=== PATIENT | female | born 1950 | race Caucasian/White ===

== ENCOUNTER 2023-08-23 20:34 | Emergency (ER) | payer MEDICARE, OTHER, SELFPAY ==
[2023-08-23] VITALS (7 sets, daily range): BP systolic 141–204; BP diastolic 61–108; BMI 23.8
[2023-08-23 21:02] LABS: % Basophils 0.3 % (0-2); % Eosinophils 0.5 % (0-6); % Immature Granulocytes 0.3 % (0-0.5); % Lymphocytes 8.5 % (20.5-51.1); % Monocytes 6.9 % (1.7-9.3); % Neutrophils 83.5 % (42.2-75.2); Absolute Eosinophils 0.1 10^3/uL (0-0.7); Absolute Monocytes 0.8 10^3/uL (0.1-0.6); Absolute Neutrophils 9.9 10^3/uL (1.4-6.5); Hematocrit 40.3 % (37.0-47.0); Hemoglobin 14.7 g/dL (12.0-16.0); Mean Corp Hgb Conc. 36.5 g/dL (33.0-37.0); Mean Corpuscular Hgb 30.6 pg (27.0-31.0); Mean Platelet Volume 9.6 fL (7.4-10.4); Nucleated Red Blood Cells % 0 %; Platelet Count 326 10^3/uL (130-400); Red Cell Dist. Width 12.5 % (11.5-14.5); White Blood Cell Count 11.8 10^3/uL (4.8-10.8)
[2023-08-23 21:20] LABS: ALT (SGPT) 38 U/L (0-35); AST (SGOT) 35 U/L (14-36); Alkaline Phosphatase 74 U/L (38-126); Blood Urea Nitrogen 18 mg/dl (7-17); Calcium 9.6 mg/dl (8.4-10.2); Carbon Dioxide 29 mmol/L (22-30); Chloride 91 mmol/L (98-107); Glucose 131 mg/dl (70-99); Potassium 4.9 mmol/L (3.5-5.1); Sodium 126 mmol/L (135-145); Total Protein 7.6 g/dl (6.3-8.2); eGFR > 60.00
[2023-08-23] MEDS: NSS 1000 IV (22:17)
--- NOTE | 2023-08-23 23:25 | ED.GENMED ---
History of Present Illness
General
Chief Complaint: Blood Pressure Problem
Source: patient
Exam Limitations: none
Time Seen by Provider: 08/23/23 21:53
Nursing documentation reviewed up to this point in time: agreed with
Travel History
Have you had any contact with someone who has COVID-19?: No
Do you have any symptoms of coronavirus? Fever > 100 degrees, chills, cough, shortness of breath, sore throat, loss of taste or smell, muscle aches, or headache?: No
History of Present Illness
History of Present Illness:
Patient to ED with complaint of elevated BP. States she checks BP frequently at home. Today she go a reading of 217/125. Admits to increased stress recently with work. Brought to ED by spouse for eval. Denies headache, dizziness, blurred
vision. Denies any cp/pressure, SOB. No fver/chills, recent illness.
Past History
Past History
ED Past Medical History: HTN
ED Past Surgical History: Cardiac
Social History
Tobacco: Non-smoker
Alcohol: None
Drug: None
Personal:
Living: with family
Review of Systems
Review of Systems
Allergies reviewed?: Yes
All Other Systems: ROS reviewed and negative except as documented in HPI and ROS
Constitutional: Reports no symptoms
EENT: Reports no symptoms
Respiratory: Reports no symptoms
Cardiac: Reports no symptoms
ABD/GI: Reports no symptoms
: Reports no symptoms
Musculoskeletal: Reports no symptoms
Skin: Reports no symptoms
Neurological: Reports no symptoms
Psychiatric: Reports no symptoms
Phy Exam
General Physical Exam
General Presentation: well appearing and no apparent distress
General age: appears stated age
General Skin: warm and dry
General Habitus: normal
General Mental: alert
Cardiovascular Exam
Cardiovascular Exam: regular rate/rhythm and no edema
Pulmonary Exam
Pulmonary Exam: lungs clear and no respiratory distress
Neurological Exam
Neurological Exam: alert, oriented x3, no motor deficits, no sensory deficits and normal gait
Musculoskeletal Exam
Musculoskeletal Exam: full ROM and neuro vasc intact
Skin Exam
Skin Exam: normal color, warm/dry and no rash
Psychiatric Exam
Psychiatric Exam: normal mood/affect
Course
Orders/Labs/Results
Orders:
Orders
08/23/23 20:41
Electrocardiogram (*1) Urgent
Reason for Study: Hypertension, Benign
EKG- Treatment ONCE
08/23/23 20:56
CMP [Comprehensive Metabolic Panel] Urgent
Complete Blood Count/With Diff Urgent
08/23/23 22:03
0.9% Sodium Chloride 1000 ml [Nss] 1,000 ml IV BOLUS
Abnormal Lab Results
08/23/23
20:56
WBC 11.8 H 10^3/uL
(4.8-10.8)
Absolute Neuts (auto) 9.9 H 10^3/uL
(1.4-6.5)
Absolute Lymphs (auto) 1.0 L 10^3/uL
(1.2-3.4)
Absolute Monos (auto) 0.8 H 10^3/uL
(0.1-0.6)
Neutrophils % 83.5 H %
(42.2-75.2)
Lymphocytes % 8.5 L %
(20.5-51.1)
Sodium 126 L mmol/L
(135-145)
Chloride 91 L mmol/L
(98-107)
BUN 18 H mg/dl
(7-17)
Glucose 131 H mg/dl
(70-99)
ALT 38 H U/L
(0-35)
08/23/23 20:56
08/23/23 20:56
Vital Signs
Initial and Last Documented VS:
Initial Vital Signs
Temp Pulse Resp BP Pulse Ox
97.7 F 124 18 204/108 97
08/23/23 20:36 08/23/23 20:36 08/23/23 20:36 08/23/23 20:36 08/23/23 20:36
Last Documented Vital Signs
Temp Pulse Resp BP Pulse Ox
97.7 F 68 12 143/66 97
08/23/23 20:36 08/23/23 23:15 08/23/23 23:15 08/23/23 23:15 08/23/23 23:15
*Critical Care Note
Total Time (30-74mins, 75-104mins- exclusive of procedures): Not Applicable
Update Note
Update Note:
BP in ED mildly elevated. Last reading of 159/88. Labs reviewed. Na 126. Has had prior episodes of hyponatremia. She remains asymptomatic of BP and NA. Given 1L NSS in dept. Will have level rechecked this week. Will discharge home. She
willl continue to check BP and log results. WIll follow up with PCP on Saturday. Given instrutions on s/s to return to ED and she is agreeable to plan
ED Attending Note
-
Portions of this chart may have been created with voice recognition software.� Occasional wrong word or��sound alike� substitutions may have occurred due to the inherent limitations of voice recognition software.
Discharge Plan
Departure
Patient Disposition: Home (Routine Discharge)
Date of Disposition: 08/23/23
Time of Disposition: 23:15
Patient with high blood pressure during this ER visit?: Yes
Condition: Good
Covid-19: Not Applicable
Discharge Problem:
Hypertension
Instructions: High Blood Pressure (DC), Hyponatremia (DC)
Referrals:
Carl Ramsay MD [Family Provider] - Follow up in 2-3 days
Activity Restrictions/Additional Instructions:
Please have your sodium level rechecked within the week.
Interventions
Interventions:
*Risk Screen - Suicide Last Done: 08/23/23 22:19
*General Assessment Last Done: 08/23/23 20:36
*Neglect/Abuse Screening Last Done: 08/23/23 22:19
ED- Fall Risk Assessment Last Done: 08/23/23 22:20
*ED COVID-19 Vaccine History Last Done: 08/23/23 20:36
ED- Cardiac Assessment Last Done: 08/23/23 22:19
ED- Neurological Assessment Last Done: 08/23/23 22:19
ED- Pulmonary Assessment Last Done: 08/23/23 22:19
== END 2023-08-23 23:47 | disposition home or self-care (01) ==
LOC: EMR 20:34
PROVIDERS: Student in an Organized Health Care Education/Training Program; EMERGENCY PHYSICIAN Emergency Medicine; FAMILY PHYSICIAN Family Medicine
DX: I10 Essential (primary) hypertension (principal); Z73.3 Stress, not elsewhere classified; F41.9 Anxiety disorder, unspecified; I25.10 Atherosclerotic heart disease of native coronary artery without angina pectoris; Z95.1 Presence of aortocoronary bypass graft; Z88.2 Allergy status to sulfonamides; Z88.1 Allergy status to other antibiotic agents; Z91.013 Allergy to seafood
CPT/HCPCS: 99284; 96360; 80053; 85025; 93005

== ENCOUNTER 2023-12-07 12:55 | Emergency (ER) | payer MEDICARE, OTHER, SELFPAY ==
[2023-12-07 13:09] VITALS: BP 198/113
[2023-12-07 13:48] VITALS: BP 184/110
[2023-12-07 14:00] VITALS: BP 184/105
--- NOTE | 2023-12-07 14:09 | ED.GENMED ---
History of Present Illness
General
Chief Complaint: Allergic Reaction
Source: patient and spouse
Exam Limitations: none
Time Seen by Provider: 12/07/23 13:53
Travel History
Have you had any contact with someone who has COVID-19?: No
Do you have any symptoms of coronavirus? Fever > 100 degrees, chills, cough, shortness of breath, sore throat, loss of taste or smell, muscle aches, or headache?: No
History of Present Illness
History of Present Illness:
Patient started citalopram about a week ago for her blood pressure via her marble supervisor. Blood pressures have been running in the 130s over 80s range. She is on amlodipine 5 mg/day. No chest pain. Days after she started the citalopram she
developed dry mouth tachycardia some episodes of heart racing and facial flushing. She called her cardiology office yesterday and they stopped the medication however she still feels this way today. No chest pain. Some mild shortness of breath
earlier today but she states that may have been her just getting anxious
Past History
Past History
ED Past Medical History: CAD and HTN
ED Past Surgical History: Cardiac
Social History
Tobacco: Non-smoker
Alcohol: None
Drug: None
Personal:
Living: with family
Review of Systems
Review of Systems
All Other Systems: Not applicable
Constitutional: Denies fever
Cardiac: Denies chest pain or syncope
ABD/GI: Reports no symptoms
Phy Exam
Physical Exam
Physical Exam:
GENERAL: Alert and oriented in no apparent distress
EYE: Orbits normal.
NECK: Supple, no thyroid
ENT: Pharynx without erythema
CARDIAC: Mildly tachycardic and regular no murmur
LUNGS: Clear breath sounds,normal
ABDOMEN: Soft, without focal tenderness or distention
NEUROLOGICAL: Alert and oriented , grossly non-focal
SKIN: Warm and dry, mild flushing of the cheeks. No hives or urticaria
MUSCULOSKELETAL: No edema,no deformity.Good color
PSYCH: Normal and appropriate interaction.
Course
Orders/Labs/Results
Orders:
Orders
12/07/23 13:12
Electrocardiogram (*1) Urgent
Reason for Study: Tachycardia
12/07/23 13:13
EKG- Treatment ONCE
12/07/23 14:07
Cardiac Monitoring- Treatment ONCE
IV Insert/Care/Rem.- Treatment PRN
Pulse Ox/cont/shift [RESP] Stat
Quantity: 1
12/07/23 14:18
Basic Metabolic Panel Urgent
Complete Blood Count/With Diff Urgent
D-Dimer Urgent
TSH Reflex To Free T4 Urgent
Troponin I Urgent
Abnormal Lab Results
12/07/23
14:18
Absolute Neuts (auto) 7.3 H 10^3/uL
(1.4-6.5)
Absolute Monos (auto) 0.9 H 10^3/uL
(0.1-0.6)
Lymphocytes % 15.5 L %
(20.5-51.1)
Sodium 129 L mmol/L
(135-145)
Potassium 5.4 H mmol/L
(3.5-5.1)
Chloride 94 L mmol/L
(98-107)
Glucose 132 H mg/dl
(70-99)
Calcium 10.3 H mg/dl
(8.4-10.2)
12/07/23 14:18
12/07/23 14:18
Vital Signs
Initial and Last Documented VS:
Initial Vital Signs
Temp Pulse Resp BP Pulse Ox
97.7 F 102 20 198/113 100
12/07/23 13:09 12/07/23 13:09 12/07/23 13:09 12/07/23 13:09 12/07/23 13:09
Last Documented Vital Signs
Temp Pulse Resp BP Pulse Ox
97.7 F 100 15 145/76 100
12/07/23 13:09 12/07/23 16:15 12/07/23 16:15 12/07/23 16:00 12/07/23 13:09
MDM/Problems Addressed
Differential Diagnosis Includes:
Very likely anticholinergic side effects from her medication. However with tachycardia and shortness of breath pulmonary emboli has to be considered. Cardiac testing will also be done. Medically stable.
*Pulse Oximetry
Patient hypoxic: no
*EKG
Interpreted by ED Provider?: Yes
Interpretation: abnormal
Comparison EKG: changes noted
Heart Rate: 97
Rate: normal
Rhythm: sinus
[place]: normal axis
Interval: normal interval
QRS Pattern: left vent hypertrophy
Ischemia: non-specific ST changes
*Critical Care Note
Total Time (30-74mins, 75-104mins- exclusive of procedures): Not Applicable
Update Note
Update Note:
Patient heart rate below 100. Blood pressure 145/76. Medically stable. No other serious explanation for patient's symptoms. Very likely anticholinergic effects from her citalopram.
ED Attending Note
-
Portions of this chart may have been created with voice recognition software.� Occasional wrong word or��sound alike� substitutions may have occurred due to the inherent limitations of voice recognition software.
Discharge Plan
Departure
Patient Disposition: Home (Routine Discharge)
Date of Disposition: 12/07/23
Time of Disposition: 16:28
Patient with high blood pressure during this ER visit?: Yes
Discharge Problem:
Adverse reaction to citalopram, Elevated blood pressure reading, Mild hyponatremia, Mild hyperkalemia
Instructions: Adverse Drug Reactions, Adult (DC), Hyponatremia, Hyperkalemia, BLOOD PRESSURE
Referrals:
Fletcher Burr MD [Active] - Next open appointment
Carl Ramsay MD [Family Provider] - Follow up in 2-3 days
Activity Restrictions/Additional Instructions:
Follow-up closely with your primary physician and marble supervisor concerning your blood pressure
I would expect the symptoms to slowly improve over the next 3 to 5 days. If they do not or they progress please return immediately for reevaluation
Also return with any other unusual symptoms including chest pain shortness of breath progressive rash etc.
Get repeat labs of your sodium and potassium within the next week
Interventions
Interventions:
*Risk Screen - Suicide Last Done: 12/07/23 13:52
*General Assessment Last Done: 12/07/23 13:52
*Neglect/Abuse Screening Last Done: 12/07/23 13:52
ED- Fall Risk Assessment Last Done: 12/07/23 13:52
*ED COVID-19 Vaccine History Last Done: 12/07/23 13:52
ED- Cardiac Assessment Last Done: 12/07/23 13:52
ED- Pulmonary Assessment Last Done: 12/07/23 13:52
ED-Skin Assessment Last Done: 12/07/23 13:52
Discharge Date and Time
Print Language: UKRAINIAN
[2023-12-07 14:31] LABS: % Basophils 0.6 % (0-2); % Eosinophils 0.5 % (0-6); % Immature Granulocytes 0.1 % (0-0.5); % Lymphocytes 15.5 % (20.5-51.1); % Monocytes 9.2 % (1.7-9.3); % Neutrophils 74.1 % (42.2-75.2); Absolute Basophils 0.1 10^3/uL (0-0.2); Absolute Eosinophils 0.1 10^3/uL (0-0.7); Absolute Lymphocytes 1.5 10^3/uL (1.2-3.4); Absolute Monocytes 0.9 10^3/uL (0.1-0.6); Absolute Neutrophils 7.3 10^3/uL (1.4-6.5); Hematocrit 41.9 % (37.0-47.0); Hemoglobin 14.7 g/dL (12.0-16.0); Mean Corp Hgb Conc. 35.1 g/dL (33.0-37.0); Mean Corpuscular Volume 85.5 fL (81.0-99.0); Mean Platelet Volume 9.8 fL (7.4-10.4); Nucleated Red Blood Cells % 0 %; Platelet Count 384 10^3/uL (130-400); Red Cell Dist. Width 12.1 % (11.5-14.5); White Blood Cell Count 9.8 10^3/uL (4.8-10.8)
[2023-12-07 14:39] LABS: D-Dimer 0.31 ug/mlFEU (0.00-0.50)
[2023-12-07 14:46] LABS: Blood Urea Nitrogen 17 mg/dl (7-17); Calcium 10.3 mg/dl (8.4-10.2); Carbon Dioxide 29 mmol/L (22-30); Chloride 94 mmol/L (98-107); Glucose 132 mg/dl (70-99); Potassium 5.4 mmol/L (3.5-5.1); Sodium 129 mmol/L (135-145); eGFR > 60.00
[2023-12-07 14:56] LABS: Troponin I < 0.012 ng/ml
[2023-12-07 15:10] VITALS: BP 142/78
[2023-12-07 16:00] VITALS: BP 145/76
== END 2023-12-07 17:08 | disposition home or self-care (01) ==
LOC: EMR 12:55
PROVIDERS: EMERGENCY PHYSICIAN Emergency Medicine; FAMILY PHYSICIAN Family Medicine
DX: T78.40XA Allergy, unspecified, initial encounter (principal); E87.5 Hyperkalemia; E87.1 Hypo-osmolality and hyponatremia; I10 Essential (primary) hypertension
CPT/HCPCS: 99284; 80048; 84443; 84484; 85025; 85379; 93005

== ENCOUNTER → 2024-04-23 15:45 | Outpatient (REF) | payer MEDICARE, OTHER, SELFPAY | LOC: HWRCS 15:45 | PROVIDERS: ATTENDING PHYSICIAN Internal Medicine; FAMILY PHYSICIAN Family Medicine | DX: I25.10 Atherosclerotic heart disease of native coronary artery without angina pectoris (principal); I10 Essential (primary) hypertension; Z95.1 Presence of aortocoronary bypass graft | CPT/HCPCS: 93306 ==

== ENCOUNTER → 2024-07-13 14:51 | Outpatient (REF) | payer MEDICARE, OTHER, SELFPAY | LOC: HWRAD 14:51 | PROVIDERS: ATTENDING PHYSICIAN Internal Medicine Endocrinology, Diabetes & Metabolism; FAMILY PHYSICIAN Family Medicine | DX: E04.2 Nontoxic multinodular goiter (principal) | CPT/HCPCS: 76536 ==

== ENCOUNTER 2025-03-23 01:37 | Emergency (ER) | payer MEDICARE, OTHER, SELFPAY ==
[2025-03-23 01:41] VITALS: BP 183/93
[2025-03-23 02:08] VITALS: BP 177/74
[2025-03-23 03:00] VITALS: BP 142/62
[2025-03-23 03:31] LABS: Hematocrit 41.4 % (37.0-47.0); Hemoglobin 14.3 g/dL (12.0-16.0); Mean Corp Hgb Conc. 34.5 g/dL (33.0-37.0); Mean Corpuscular Volume 84.3 fL (81.0-99.0); Nucleated Red Blood Cells % 0 %; Platelet Count 350 10^3/uL (130-400); Red Cell Dist. Width 12.6 % (11.5-14.5)
[2025-03-23 03:50] LABS: ALT (SGPT) 32 U/L (0-35); AST (SGOT) 31 U/L (14-36); Albumin 5.2 g/dl (3.5-5.0); Alkaline Phosphatase 63 U/L (38-126); Blood Urea Nitrogen 23 mg/dl (7-17); Calcium 10.2 mg/dl (8.4-10.2); Carbon Dioxide 27 mmol/L (22-30); Chloride 102 mmol/L (98-107); Glucose 125 mg/dl (70-99); Potassium 4.5 mmol/L (3.5-5.1); Sodium 137 mmol/L (135-145); Total Protein 8.0 g/dl (6.3-8.2); eGFR > 60.00
[2025-03-23 04:00] VITALS: BP 135/67
[2025-03-23 04:07] LABS: Troponin I < 0.012 ng/ml
--- NOTE | 2025-03-23 04:39 | ED.GENMED ---
History of Present Illness
General
Chief Complaint: Heart Rate Problem
Source: patient and family (Daughter who is at bedside)
Exam Limitations: none
Time Seen by Provider: 03/23/25 03:09
Nursing documentation reviewed up to this point in time: agreed with
History of Present Illness
History of Present Illness:
The patient is a 74-year-old female presenting with palpitations. She reported waking up from sleep around midnight experiencing a sensation of her heart 'racing' and feeling flushed. The episode was characterized by a heart rate of approximately
124 beats per minute, which she described as 'pretty regular.' She also reported her blood pressure being elevated at 199/110 mmHg during the episode. She noted an absence of pain and shortness of breath, and prior to the event, she felt fine before
going to bed. The patient reported that this was the first occurrence of palpitations, causing concern due to her history of CABG 2018. She has a history of hyperthyroidism and is currently taking Methimazole. Her last thyroid function test was in
December, which did not require any change in her medication. She also has a history of hypertension with typical readings around 130/76 mmHg.
She follows regularly with supervisor slate splitting as well as spot washer, Dr. Banks.
She has known history of PACs but no prior history of arrhythmia, no history of A-fib.
She does admit to being under tremendous amount of stress, would like go from her prior employment after more than 20 years of service. She has had marked difficulty finding new employment.
She also notes significant anxiety when palpitations occurred and anxiety may have been exacerbated as she was home alone. Her is currently away on business. She called her daughter and upon daughter's arrival her heart rate and blood
pressure immediately improved.
Currently feeling markedly improved and continues to deny chest pain nor shortness of breath.
She admits to consuming 1 glass of wine tonight. Denies caffeine use, no decongestants nor antihistamines, denies drug use.
Past History
Past History
ED Past Medical History: CAD, HTN, Hypercholesterolemia, Hyperthyroidism and Psychiatric (Anxiety)
ED Past Surgical History: Cardiac (CABG times 10/2018)
Social History
Tobacco: Non-smoker
Alcohol: Occasional
Drug: None
Personal:
Living: with family
Employment: Not employed
Family History
Family History: Hypertension
Phy Exam
Physical Exam
Physical Exam:
GENERAL: 74-year-old woman appears her stated age, bright and alert, pleasant, appears in no acute distress. Daughter is accompanying.
EYE: anicteric
NECK: Supple, nontender, no meningismus, no significant adenopathy.
ENT: oral mucosa is moist. No rhinorrhea.
CARDIAC: Regular rate and rhythm. no murmur.
LUNGS: Clear breath sounds bilaterally, no acute respiratory distress, no wheezes/rales/rhonchi
ABDOMEN: Soft, nondistended, without focal tenderness
NEUROLOGICAL: Alert and oriented x3, no focal neuro deficits. Gait is steady.
SKIN: Warm and dry, normal color, skin intact. No rash.
MUSCULOSKELETAL: No C/C/E. peripheral pulses are full and equal b/l. No palpable tenderness.
PSYCH: Normal and appropriate interaction.
Course
Orders/Labs/Results
Orders:
Orders
03/23/25 01:38
ECG [Electrocardiogram (*1)] Urgent
Reason for Study: Tachycardia
03/23/25 01:39
EKG- Treatment ONCE
03/23/25 03:25
Comprehensive Metabolic Panel Urgent
03/23/25 03:26
Complete Blood Count/With Diff Urgent
TSH Reflex To Free T4 Urgent
Troponin I Urgent
Abnormal Lab Results
03/23/25 03/23/25
03:25 03:26
Absolute Neuts (auto) 7.9 H 10^3/uL
(1.4-6.5)
Absolute Monos (auto) 0.8 H 10^3/uL
(0.1-0.6)
Lymphocytes % 17.1 L %
(20.5-51.1)
BUN 23 H mg/dl
(7-17)
Glucose 125 H mg/dl
(70-99)
Albumin 5.2 H g/dl
(3.5-5.0)
03/23/25 03:26
03/23/25 03:25
Vital Signs
Initial and Last Documented VS:
Initial Vital Signs
Temp Pulse Resp BP Pulse Ox
97.6 F 95 16 183/93 99
03/23/25 01:41 03/23/25 01:41 03/23/25 01:41 03/23/25 01:41 03/23/25 01:41
Last Documented Vital Signs
Temp Pulse Resp BP Pulse Ox
97.6 F 74 19 135/67 94
03/23/25 01:41 03/23/25 04:30 03/23/25 03:15 03/23/25 04:00 03/23/25 04:48
MDM/Problems Addressed
Differential Diagnosis Includes:
The Differential Diagnosis includes, in no particular order and is not limited to:
1. Paroxysmal Supraventricular Tachycardia (PSVT)
2. Atrial Fibrillation
3. Anxiety Attack
4. Hyperthyroidism-related Cardiac Symptoms
5. Hypertensive Crisis
6. Premature Atrial Contractions (PACs)
7. Coronary Artery Disease
8. Heart Failure
9. Electrolyte Imbalance
10. Medication side effects or interactions.
MDM/Problems Addressed:
Palpitations, hypertension, hypothyroidism
Concern for tachyarrhythmia which has resolved since arrival to the ED.
EKG shows normal sinus rhythm with PACs, LVH. Overall similar and unchanged from previous EKG November 2023
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
Initial blood pressure elevated 183/93, has improved to 142/62.
Will continue patient monitor, will check labs including troponin, electrolytes, TSH�especially in light of history of hyperthyroidism.
Chronic conditions affecting care: HTN, CAD, Psychiatric illness and Other (Hypothyroidism)
*Pulse Oximetry
SaO2: 94
Oxygen Mode of Delivery: Room air
Patient hypoxic: no
*EKG
Interpreted by ED Provider?: Yes
Interpretation: normal
Comparison EKG: no changes (Unchanged from previous November 2023)
Rate: normal
Rhythm: sinus and PAC's
[place]: normal axis
Interval: normal interval
QRS Pattern: left vent hypertrophy
Ischemia: non-specific ST changes (LVH with mild strain pattern laterally, similar and unchanged from previous November 2023)
*Darklight Inspector Interpretation
Rate: normal
Interpretation: normal
Rhythm: sinus and PAC's
*Critical Care Note
Total Time (30-74mins, 75-104mins- exclusive of procedures): Not Applicable
Update Note
Update Note:
04:45
Patient remains comfortable, asymptomatic.
Monitor continues to show normal sinus rhythm.
Blood pressures improved 135/67. At her baseline.
Labs are unremarkable. Normal troponin, normal electrolytes. Normal TSH.
Will discharge to home with recommendation for prompt follow-up with her PCP as well as her spot washer.
Return precautions discussed.
ED Attending Note
-
Portions of this chart may have been created with voice recognition software.� Occasional wrong word or��sound alike� substitutions may have occurred due to the inherent limitations of voice recognition software.
Discharge Plan
Departure
Patient Disposition: Home (Routine Discharge)
Date of Disposition: 03/23/25
Time of Disposition: 04:51
Patient with high blood pressure during this ER visit?: No
Condition: Good
Discharge Problem:
Heart palpitations
Instructions: Palpitations (DC)
Prescriptions:
No Action
atorvastatin 20 mg Tablet
20 mg PO DAILY
fexofenadine [Amalia Allergy] 180 mg Tablet
180 mg PO DAILYPRN PRN (Reason: seasonal allergies)
amlodipine 5 mg Tablet
7.5 mg PO DAILY
methimazole 5 mg Tablet
2.5 mg PO DAILY
aspirin 81 mg Tablet
81 mg PO DAILY
ezetimibe 10 mg Tablet
10 mg PO DAILY
Referrals:
Fletcher Burr MD [Active, Cardiology] - Call in 1-3 days for appt
Carl Ramsay MD [Family Provider, Family Practice] - Call in 1-3 days for appt
Interventions
Interventions:
*Risk Screen - Suicide Last Done: 03/23/25 01:45
*Neglect/Abuse Screening Last Done: 03/23/25 01:45
*ED- Fall Risk Assessment Last Done: 03/23/25 01:45
*ED COVID-19 Vaccine History Last Done: 03/23/25 01:45
Discharge Date and Time
Print Language: DANISH
== END 2025-03-23 05:23 | disposition home or self-care (01) ==
LOC: EMR 01:37
PROVIDERS: EMERGENCY PHYSICIAN Emergency Medicine; FAMILY PHYSICIAN Family Medicine
DX: R00.2 Palpitations (principal); I25.10 Atherosclerotic heart disease of native coronary artery without angina pectoris; I10 Essential (primary) hypertension; E78.00 Pure hypercholesterolemia, unspecified; E03.9 Hypothyroidism, unspecified; Z95.1 Presence of aortocoronary bypass graft
CPT/HCPCS: 99284; 80053; 84443; 84484; 85025; 93005